=== PATIENT | female | born 1960 | race Caucasian/White ===

== ENCOUNTER → 2018-08-12 | Outpatient (CLI) | payer OTHER ==
[~2018-08-12] MED LIST: LIDOCAINE 1% 300 MG/30 ML SDV ONE
== END ==
LOC: FIMAGING 16:30
PROVIDERS: ATTEND Internal Medicine Hematology & Oncology
PROC: 0W9F30Z Drainage of Abdominal Wall with Drainage Device, Percutaneous Approach (ICD-10-PCS; principal; 2018-08-12)
DX: R18.0 Malignant ascites (principal); C48.2 Malignant neoplasm of peritoneum, unspecified

== ENCOUNTER → 2018-11-14 | Outpatient (CLI) | payer OTHER | LOC: FOBOP 09:29 ==